=== PATIENT | male | born 1960 | race Caucasian/White ===

== ENCOUNTER 2016-09-26 19:47 | Emergency (ER) | payer OTHER, MEDICAID ==
[2016-09-26 19:59] VITALS: BP 148/86; PULSE 71; RESP 20; TEMP 98.4; O2SAT 95
--- NOTE | 2016-09-26 20:30 | EDPHY ---
H & P Stated Complaint: SOB ALL DAY, IN [place] [id number] Time Seen by Provider: 09/26/16 20:23 HPI/ROS: CHIEF COMPLAINT: Anxiety HISTORY OF PRESENT ILLNESS: The patient is a 56-year-old man who comes in to the emergency department complaining that he felt short of breath since this afternoon. He has a history of COPD. He is saturating 97% on room air and is not tachypneic. He denies chest pain. He has been using his albuterol and Spiriva at baseline. He did smoke a little bit a few days ago and he thinks this may have exacerbated his symptoms. He also remembers taking a 5 hour energy and a coffee this afternoon when his symptoms began. REVIEW OF SYSTEMS: Constitutional: denies: chills, fever, recent illness, recent injury EENTM: denies: blurred vision, double vision, nose congestion Respiratory: denies: cough, shortness of breath Cardiac: denies: chest pain, irregular heart rate, lightheadedness, palpitations Gastrointestinal/Abdominal: denies: abdominal pain, diarrhea, nausea, vomiting, blood streaked stools Genitourinary: denies: dysuria, frequency, hematuria, pain Musculoskeletal: denies: joint pain, muscle pain Skin: denies: lesions, rash, jaundice, bruising Neurological: denies: headache, numbness, paresthesia, tingling, dizziness, weakness Hematologic/Lymphatic: denies: blood clots, easy bleeding, easy bruising Immunologic/allergic: denies: HIV/AIDS, transplant EXAM: GENERAL: Well-appearing, well-nourished and in no acute distress. HEAD: Atraumatic, normocephalic. EYES: Pupils equal round and reactive to light, extraocular movements intact, sclera anicteric, conjunctiva are normal. ENT: TMs normal, nares patent, oropharynx clear without exudates. Moist mucous membranes. NECK: Normal range of motion, supple without lymphadenopathy or JVD. LUNGS: Breath sounds clear to auscultation bilaterally and equal. No wheezes rales or rhonchi. HEART: Regular rate and rhythm without murmurs, rubs or gallops. ABDOMEN: Soft, nontender, normoactive bowel sounds. No guarding, no rebound. No masses appreciated. BACK: No CVA tenderness, no spinal tenderness, step-offs or deformities EXTREMITIES: Normal range of motion, no pitting or edema. No clubbing or cyanosis. NEUROLOGICAL: Cranial nerves II through XII grossly intact. Normal speech, normal gait. 5/5 strength, normal movement in all extremities, normal sensation PSYCH: Normal mood, normal affect. SKIN: Warm, dry, normal turgor, no visible rashes or lesions. Source: Patient Exam Limitations: No limitations - Personal History Current Tetanus/Diphtheria Vaccine: Yes - Medical/Surgical History Hx Asthma: Yes Hx Chronic Respiratory Disease: Yes Hx Diabetes: Yes Hx Cardiac Disease: No Hx Renal Disease: No Hx Cirrhosis: No Hx Alcoholism: No Hx HIV/AIDS: No Hx Splenectomy or Spleen Trauma: No Other PMH: COPD, DIABETES, DEPRESSION, GERD, KNEE REPLACEMENTS, HX ALCOHOLISM - Family History Significant Family History: No pertinent family hx - Social History Smoking Status: Former smoker Alcohol Use: Sober Drug Use: None Constitutional: Initial Vital Signs Temperature (C) 36.9 C 09/26/16 19:54 Heart Rate 71 09/26/16 19:54 Respiratory Rate 20 09/26/16 19:54 Blood Pressure 148/86 H 09/26/16 19:54 O2 Sat (%) 95 09/26/16 19:54 O2 Delivery Mode Room Air Allergies/Adverse Reactions: No Known Allergies Allergy (Unverified 09/26/16 19:53) Home Medications: Medication Instructions Recorded Albuterol 09/26/16 Flonase Nasal [place] 09/26/16 Glipizide 09/26/16 Metformin HCl 09/26/16 Nicotine Patch 09/26/16 Omeprazole 09/26/16 Seroquel 09/26/16 Spiriva Inhaler (RX) 09/26/16 Symbicort 160-4.5 Mcg Inh (*) 09/26/16 busPIRone 09/26/16 Medical Decision Making ED Course/Re-evaluation: The patient has a normal lung exam. He is saturating 97% on room air. He is not tachycardic. He feels reassured by this. He remembered that his symptoms began soon after he took the 5 hour energy and caffeine. He thinks that this is anxiety. He has had significant anxiety in the past. He declines any testing or workup. He is concerned about cost. We discussed indications for returning. Differential Diagnosis: Partial list of the Differential diagnosis considered include but were not limited to; anxiety, COPD exacerbation and although unlikely based on the history and physical exam, I also considered pneumonia, pneumothorax. I discussed these differential diagnoses and the plan with the patient as well as the usual and expected course. The patient understands that the diagnosis is provisional and that in medicine we are not always correct and that further workup is often warranted. Usual and customary warnings were given. All of the patient's questions were answered. The patient was instructed to return to the emergency department should the symptoms at all worsen or return, otherwise to followup with the physician as we discussed. Departure - Departure Disposition: Home, Routine, Self-Care Clinical Impression: Anxiety Condition: Fair Instructions: Caffeine Use (ED) Referrals: NONE *PRIMARY CARE P,. [Primary Care Provider] - As per Instructions
== END 2016-09-26 20:42 | disposition home or self-care (01) ==
DX: F41.9 Anxiety disorder, unspecified (principal); J44.9 Chronic obstructive pulmonary disease, unspecified; E11.9 Type 2 diabetes mellitus without complications; Z79.84 Long term (current) use of oral hypoglycemic drugs; Z87.891 Personal history of nicotine dependence